=== PATIENT | male | born 1970 | race Hispanic/Latino ===

== ENCOUNTER 2022-01-31 18:05 | Emergency (ER) | payer BC, OTHER ==
[~2022-01-31] VITALS: Ht 180.3 cm; Wt 110.7 kg
[~2022-01-31 18:05] MED LIST: ASPI-1443 PO; ATOR40TA71 PO; ISOS30TA92 PO; LISI10TA24 PO; METO-408 PO; TRAM50TA4 PO
[2022-01-31 19:21] LABS: BASOPHILS % (AUTO) 0.8 % (0.0-5.0); EOSINOPHILS % (AUTO) 1.2 % (0.0-8.0); HEMATOCRIT 45.6 % (42-54); LYMPHOCYTES % (AUTO) 23.5 % (21.0-51.0); MEAN CORPUSCULAR HEMOGLOBIN 28.8 pg (27.0-33.0); MEAN CORPUSCULAR HGB CONC 32.9 g/dL (32.0-36.0); MEAN CORPUSCULAR VOLUME 87.7 fL (79-99); MONOCYTES % (AUTO) 6.5 % (3.0-13.0); NEUTROPHILS % (AUTO) 67.3 % (40.0-77.0); PLATELET COUNT (AUTO) 317 K/uL (130-400); RED CELL DISTRIBUTION WIDTH 14.4 % (11.0-15.5); WHITE BLOOD COUNT (AUTO) 8.5 K/uL (4.8-10.8)
[2022-01-31 19:28] LABS: CREATININE 0.7 mg/dL (0.5-1.5); POTASSIUM 3.9 mmol/L (3.5-5.1)
[2022-01-31 19:43] LABS: ALBUMIN 3.5 g/dL (3.5-5.0); BILIRUBIN,TOTAL 0.3 mg/dL (0.2-1.0); TOTAL PROTEIN, SERUM 8.7 g/dL (6.0-8.3)
[2022-01-31 21:24] LABS: APPEARANCE,URINE Clear (CLEAR); BILIRUBIN,URINE Negative (NEGATIVE); COLOR,URINE Yellow (YELLOW); GLUCOSE, URINE (UA) Negative (NEGATIVE); KETONES,URINE Negative (NEGATIVE); LEUKOCYTE ESTERASE ,URINE Negative (NEGATIVE); NITRATE,URINE Negative (NEGATIVE); OCCULT BLOOD,URINE Trace (NEGATIVE); PH,URINE 5.5 (5.0-8.0); PROTEIN,URINE Negative (NEGATIVE); UROBILINOGEN,URINE 0.2 mg/dL (0.2-1.0)
[2022-01-31 21:38] LABS: BACTERIA,URINE None Seen /HPF (None Seen); SQUAMOUS EPITHELIAL CELL,UR 0-2 /HPF (0-2); WBC,URINE 0-1 /HPF (0-1)
[2022-01-31 21:44] VITALS: BP 149/99
[2022-01-31] MEDS ORDERED: LISI10TA24 PO (22:24)
[2022-01-31] MEDS ORDERED: ATOR40TA71 PO (22:24)
[2022-01-31] MEDS ORDERED: ASPI-1005 PO (22:24)
[2022-01-31] MEDS ORDERED: METO25TA3 PO (22:24)
== END 2022-01-31 22:41 | disposition home or self-care (01) ==
LOC: EDH 18:05
DX: R53.1 Weakness (principal); F14.90 Cocaine use, unspecified, uncomplicated; I25.10 Atherosclerotic heart disease of native coronary artery without angina pectoris; I25.2 Old myocardial infarction; Z79.82 Long term (current) use of aspirin; Z79.899 Other long term (current) drug therapy
CPT/HCPCS: 36415; 70450; 80053; 81001; 82550; 84484; 85025; 93005; 93971

== ENCOUNTER 2022-02-01 15:23 | Observation (INO) | payer OTHER ==
[~2022-02-01] VITALS: Ht 180.3 cm; Wt 111.1 kg
[~2022-02-01 15:23] MED LIST changes: +ASPI-1005 PO; +METO25TA3 PO
[2022-02-01 15:50] LABS: BASOPHILS % (AUTO) 0.4 % (0.0-5.0); EOSINOPHILS % (AUTO) 0.9 % (0.0-8.0); HEMATOCRIT 44.9 % (42-54); LYMPHOCYTES % (AUTO) 24.4 % (21.0-51.0); MEAN CORPUSCULAR HGB CONC 33.2 g/dL (32.0-36.0); MEAN CORPUSCULAR VOLUME 87.5 fL (79-99); MONOCYTES % (AUTO) 6.8 % (3.0-13.0); PLATELET COUNT (AUTO) 306 K/uL (130-400); RED BLOOD CELL COUNT(AUTO) 5.13 MIL/uL (4.50-6.20); RED CELL DISTRIBUTION WIDTH 14.5 % (11.0-15.5); WHITE BLOOD COUNT (AUTO) 7.5 K/uL (4.8-10.8)
[2022-02-01 16:00] LABS: CREATININE 0.8 mg/dL (0.5-1.5); POTASSIUM 4.1 mmol/L (3.5-5.1)
[2022-02-01] MEDS ORDERED: 0.9%NACL 1000ML 1,000 ML IV ONE (16:00)
[2022-02-01 16:05] LABS: ALBUMIN 3.2 g/dL (3.5-5.0); BILIRUBIN,TOTAL 0.3 mg/dL (0.2-1.0); TOTAL PROTEIN, SERUM 8.3 g/dL (6.0-8.3)
[2022-02-01 17:05] LABS: APPEARANCE,URINE Cloudy (CLEAR); BILIRUBIN,URINE Negative (NEGATIVE); COLOR,URINE Yellow (YELLOW); GLUCOSE, URINE (UA) Negative (NEGATIVE); KETONES,URINE Negative (NEGATIVE); LEUKOCYTE ESTERASE ,URINE Negative (NEGATIVE); NITRATE,URINE Negative (NEGATIVE); OCCULT BLOOD,URINE Negative (NEGATIVE); PROTEIN,URINE Negative (NEGATIVE)
[2022-02-01 17:12] LABS: AMPHET/METH SCREEN,URINE NEGATIVE (NEGATIVE); BARBITURATE SCREEN, URINE NEGATIVE (NEGATIVE); BENZODIAZEPINES SCREEN,URINE NEGATIVE (NEGATIVE); CANNABINOID SCREEN,URINE NEGATIVE (NEGATIVE); COCAINE SCREEN,URINE NEGATIVE (NEGATIVE); OPIATE SCREEN,URINE NEGATIVE (NEGATIVE); PHENCYCLIDINE SCREEN,URINE NEGATIVE (NEGATIVE)
[2022-02-01] MEDS: ASPIRIN 81MG CHEW TAB ONE ×2 (17:16→17:49)
[2022-02-01 17:20] LABS: AMORPHOUS SEDIMENT,UR Few /LPF (None Seen); BACTERIA,URINE Few /HPF (None Seen); RBC,URINE 0-1 /HPF (0-1); SQUAMOUS EPITHELIAL CELL,UR Rare /HPF (0-2); WBC,URINE 0-1 /HPF (0-1)
[2022-02-01 17:21] LABS: MUCUS,URINE Rare LPF (None Seen)
[2022-02-01] MEDS ORDERED: CLOPIDOGREL 75MG TAB PO ONE (17:30)
[2022-02-01] MEDS ORDERED: LABETALOL 20MG SYG IV PRN ×2 (18:00→23:00)
[2022-02-01 20:07] LABS: HEMOGLOBIN A1C 6.1 % (4.0-6.0)
[2022-02-01 20:08] LABS: CHOLESTEROL 201 mg/dL (<200); HDL CHOLESTEROL 37 mg/dL (29-71); LDL DIRECT 144 mg/dL (0-99); TRIGLYCERIDES 115 mg/dL (30-200)
[2022-02-01 22:15] VITALS: BP 130/81
[2022-02-01] MEDS: 0.9%NACL 1000ML 1,000 ML IV SCH (23:27)
[2022-02-02 00:20] VITALS: BP 116/78
[2022-02-02 04:20] VITALS: BP 128/84
[2022-02-02 07:30] VITALS: BP 125/79
[2022-02-02] MEDS: ASPIRIN 81MG CHEW TAB PO SCH (08:45)
[2022-02-02] MEDS: CLOPIDOGREL 75MG TAB PO SCH (08:45)
[2022-02-02] MEDS: FAMOTIDINE 20MG VIAL IV SCH ×2 (08:45→21:04)
[2022-02-02 11:00] VITALS: BP 117/81
[2022-02-02 16:00] VITALS: BP 126/85
[2022-02-02] MEDS: 0.9%NACL 1000ML 1,000 ML IV SCH (19:30)
[2022-02-02 20:24] VITALS: BP 133/78
[2022-02-02] MEDS: ATORVASTATIN 40 MG TABLET PO SCH (21:04)
[2022-02-03] VITALS (7 sets, daily range): BP systolic 108–139; BP diastolic 68–93
[2022-02-03 04:54] LABS: BASOPHILS % (AUTO) 0.5 % (0.0-5.0); EOSINOPHILS % (AUTO) 1.2 % (0.0-8.0); HEMATOCRIT 43.1 % (42-54); MEAN CORPUSCULAR HEMOGLOBIN 28.8 pg (27.0-33.0); MEAN CORPUSCULAR HGB CONC 32.5 g/dL (32.0-36.0); MEAN CORPUSCULAR VOLUME 88.7 fL (79-99); MONOCYTES % (AUTO) 6.7 % (3.0-13.0); NEUTROPHILS % (AUTO) 58.2 % (40.0-77.0); PLATELET COUNT (AUTO) 283 K/uL (130-400); RED BLOOD CELL COUNT(AUTO) 4.86 MIL/uL (4.50-6.20); RED CELL DISTRIBUTION WIDTH 14.3 % (11.0-15.5); WHITE BLOOD COUNT (AUTO) 7.4 K/uL (4.8-10.8)
[2022-02-03 05:08] LABS: BILIRUBIN,TOTAL 0.4 mg/dL (0.2-1.0); CREATININE 0.9 mg/dL (0.5-1.5); POTASSIUM 4.2 mmol/L (3.5-5.1); TOTAL PROTEIN, SERUM 7.6 g/dL (6.0-8.3)
[2022-02-03] MEDS: ASPIRIN 81MG CHEW TAB PO SCH (08:37)
[2022-02-03] MEDS: FAMOTIDINE 20MG VIAL IV SCH ×3 (08:37→20:57)
[2022-02-03] MEDS: CLOPIDOGREL 75MG TAB PO SCH (08:37)
[2022-02-03] MEDS: 0.9%NACL 1000ML 1,000 ML IV SCH (15:30)
[2022-02-03] MEDS: ATORVASTATIN 40 MG TABLET PO SCH (20:57)
[2022-02-04 03:58] VITALS: BP 129/89
[2022-02-04 07:45] VITALS: BP 118/78
[2022-02-04] MEDS: FAMOTIDINE 20MG VIAL IV SCH (07:56)
[2022-02-04] MEDS: ASPIRIN 81MG CHEW TAB PO SCH (07:56)
[2022-02-04] MEDS: CLOPIDOGREL 75MG TAB PO SCH (07:57)
[2022-02-04 11:05] VITALS: BP 123/81
[2022-02-04] MEDS ORDERED: CLOP75TA14 PO (15:34)
[2022-02-04 15:56] VITALS: BP 124/80
== END 2022-02-04 17:50 | disposition home or self-care (01) ==
LOC: EDH 15:23 → EDHIP 17:46 → 3CH 21:25
PROVIDERS: ADMIT Internal Medicine; ATTEND Internal Medicine
DX: I63.423 Cerebral infarction due to embolism of bilateral anterior cerebral arteries (principal); E78.5 Hyperlipidemia, unspecified; E11.9 Type 2 diabetes mellitus without complications; I10 Essential (primary) hypertension; E66.9 Obesity, unspecified; F17.200 Nicotine dependence, unspecified, uncomplicated; I25.2 Old myocardial infarction; F14.90 Cocaine use, unspecified, uncomplicated; Z95.1 Presence of aortocoronary bypass graft; Z79.82 Long term (current) use of aspirin; Z79.02 Long term (current) use of antithrombotics/antiplatelets; Z79.4 Long term (current) use of insulin; Z79.899 Other long term (current) drug therapy; Z91.19 Patient's noncompliance with other medical treatment and regimen
CPT/HCPCS: 36415 ×2; 70450; 70544; 70547; 70551; 78582; 80053 ×2; 80061; 80305; 81001; 82550 ×2; 82948 ×10; 83036; 85025 ×2; 85378; 92522; 92610; 93356; 93970; 96361 ×2; 96374; 96376 ×3; 97161; 99285; A9540; A9558; C8929; G0378 ×68; J3490 ×5; J7030